=== PATIENT | female | born 1955 | race African-American/Black ===

== ENCOUNTER 2020-07-07 05:04 | Day surgery (SDC) | payer OTHER ==
[2020-07-05 16:18] VITALS: BMI 33.0
[2020-07-07 09:54] VITALS: TEMP 97.5
[2020-07-10 08:58] VITALS: BP 123/59; PULSE 73
--- NOTE | 2020-07-10 15:45 | PATH ---
Surgical Pathology Report Patient Name: SUZY CHAHAL [facility]. Rec. #: [id number] /Age/Gender: 1955 (Age: 64) / F Account: [id number] Location: U-ENDOSCOPY Taken: 07/07/2020 Received: 07/07/2020 Reported: 07/10/2020 Physicians: [place] M.D. Specimen(s) Received A: SIGMOID COLON POLYP B: COLON RANDOM C: POLYPS RECTAL Clinical History Diarrhea Postoperative diagnosis: Sigmoid colon polyp and rectal polyp, hemorrhoids, diverticulosis Final Diagnosis A. SIGMOID COLON, POLYP, POLYPECTOMY: TUBULAR ADENOMA. B. COLON, RANDOM, BIOPSY: COLONIC MUCOSA WITH MILD SUPERFICIAL HYPERPLASTIC FEATURES. C. RECTAL POLYPS, POLYPECTOMY: TUBULAR ADENOMA(S). Electronically Signed Uzma Burdick M.D. Gross Description A. Received in formalin, labeled "polyp sigmoid colon" are 2 valladares, irregular portions of soft tissue measuring 0.3 and 0.4 cm. in greatest dimension. The specimens are submitted in toto in one cassette. B. Received in formalin, labeled "biopsy colon" are 4 valladares, irregular portions of soft tissue ranging from 0.2-0.3 cm. in greatest dimension. The specimens are submitted in toto in one cassette. C. Received in formalin, labeled "polyps rectal" are 3 valladares, irregular portions of soft tissue ranging from 0.3-0.4 cm. in greatest dimension. The specimens are submitted in toto in one cassette. /07/07/2020 saudi/07/07/2020
== END 2020-07-07 11:05 | disposition home or self-care (01) ==
LOC: JASU-ENDO 05:04
PROVIDERS: ATTEND Internal Medicine Gastroenterology
PROC: 0DBN8ZX Excision of Sigmoid Colon, Via Natural or Artificial Opening Endoscopic, Diagnostic (ICD-10-PCS; 2020-07-07)
PROC: 0DBP8ZX Excision of Rectum, Via Natural or Artificial Opening Endoscopic, Diagnostic (ICD-10-PCS; principal; 2020-07-07 10:00)
DX: Z12.11 Encounter for screening for malignant neoplasm of colon (principal); Z85.038 Personal history of other malignant neoplasm of large intestine; K64.8 Other hemorrhoids; K57.30 Diverticulosis of large intestine without perforation or abscess without bleeding; K62.1 Rectal polyp; D12.5 Benign neoplasm of sigmoid colon
CPT/HCPCS: 88305-TC